=== PATIENT | male | born 1995 | race Caucasian/White ===

== ENCOUNTER 2017-07-26 15:16 | Emergency (ER) | payer OTHER ==
[~2017-07-26] VITALS: Ht 180.3 cm; Wt 64.0 kg
[~2017-07-26 15:16] MED LIST: CYCL10TA PO
[2017-07-26 15:17] VITALS: BP 134/79; PULSE 113; RESP 20; TEMP 100.1; O2SAT 100
--- NOTE | 2017-07-26 15:48 | RADRPT ---
EXAM DATE/TIME: 07/26/2017 15:37 [facility] COMPARISON: No previous studies available for comparison. INDICATIONS : Throat pain. MEDICAL HISTORY : None. SURGICAL HISTORY : None. ENCOUNTER: Initial ACUITY: 2 weeks PAIN SCORE: 3/10 LOCATION: Bilateral throat. FINDINGS: Two view examination of the soft tissues of the neck demonstrates the hypopharyngeal airway to have a grossly normal configuration. The epiglottis and aryepiglottic folds are unremarkable. The preverteb ral soft tissues are within normal limits. The trachea is midline. No radiopaque foreign bodies are seen. CONCLUSION: Unremarkable soft tissues. Oleg Rodriguez MD on July 26, 2017 at 15:44 Board Certified Radiologist. This report was verified electronically.
[2017-07-26 16:40] LABS: AUTOMATED NEUTROPHIL # 4.5 TH/MM3 (1.8-7.7); BASOPHIL % 0.4 % (0.0-2.0); EOSINOPHIL # 0.1 TH/MM3 (0-0.4); EOSINOPHIL % 1.2 % (0.0-4.0); HEMATOCRIT 34.5 % (39.0-51.0); HEMOGLOBIN 12.4 GM/DL (13.0-17.0); LYMPH % 50.1 % (9.0-44.0); LYMPHOCYTE # 5.5 TH/MM3 (1.0-4.8); MEAN CORPUSCULAR HEMOGLOBIN 30.8 PG (27.0-34.0); MEAN CORPUSCULAR HGB CONC 35.9 % (32.0-36.0); MEAN PLATELET VOLUME 6.1 FL (7.0-11.0); MONO % 7.2 % (0.0-8.0); MONOCYTE # 0.8 TH/MM3 (0-0.9); NEUT % 41.1 % (16.0-70.0); PLATELET COUNT 239 TH/MM3 (150-450); RED BLOOD COUNT 4.01 MIL/MM3 (4.50-5.90); RED CELL DISTRIBUTION WIDTH 13.6 % (11.6-17.2)
[2017-07-26 16:55] LABS: BICARBONATE 27.4 MEQ/L (21.0-32.0); CREATININE 0.87 MG/DL (0.60-1.30)
[2017-07-26] MEDS ORDERED: CLIN300C5 PO (17:29)
[2017-07-26 17:45] LABS: BANDS 4 % (0-6); LYMPHOCYTES 39 % (9-44); MONOCYTES 7 % (0-8); NEUTROPHIL # MANUAL DIFF 5.8 TH/MM3 (1.8-7.7); POLYS (SEG NEUTROPHILS) 49 % (16-70)
[2017-07-26 17:46] VITALS: BP 129/83; PULSE 84; RESP 16; O2SAT 100
--- NOTE | 2017-07-26 17:57 | PD ---
Physical Exam Time Seen by Provider: 17:55 Narrative I received report from POP Ricks and assumed patient care at this time. See her note for initial assessment and evaluation. Data Data Last Documented VS Vital Signs Date Time Temp Pulse Resp B/P (MAP) Pulse Ox O2 Delivery O2 Flow Rate FiO2 07/26/17 17:46 84 16 129/83 (98) 100 Room Air 07/26/17 15:17 100.1 Orders Orders Basic Metabolic Panel (Bmp) (07/26/17 15:25) Complete Blood Count With Diff (07/26/17 15:25) Group A Rapid Strep Screen (07/26/17 15:25) Soft Tissue Neck (07/26/17 15:25) Strep Culture (Group A) (07/26/17 16:25) Ct Soft Tiss Neck W Iv Cont (07/26/17 ) Iohexol 350 Inj (Omnipaque 350 Inj) (07/26/17 18:16) Ed Discharge Order (07/26/17 18:59) Labs Laboratory Tests Test 07/26/17 16:25 White Blood Count 11.0 TH/MM3 Red Blood Count 4.01 MIL/MM3 Hemoglobin 12.4 GM/DL Hematocrit 34.5 % Mean Corpuscular Volume 86.0 FL Mean Corpuscular Hemoglobin 30.8 PG Mean Corpuscular Hemoglobin Concent 35.9 % Red Cell Distribution Width 13.6 % Platelet Count 239 TH/MM3 Mean Platelet Volume 6.1 FL Neutrophils (%) (Auto) 41.1 % Lymphocytes (%) (Auto) 50.1 % Monocytes (%) (Auto) 7.2 % Eosinophils (%) (Auto) 1.2 % Basophils (%) (Auto) 0.4 % Neutrophils # (Auto) 4.5 TH/MM3 Lymphocytes # (Auto) 5.5 TH/MM3 Monocytes # (Auto) 0.8 TH/MM3 Eosinophils # (Auto) 0.1 TH/MM3 Basophils # (Auto) 0.0 TH/MM3 CBC Comment AUTO DIFF Differential Total Cells Counted 100 Neutrophils % (Manual) 49 % Band Neutrophils % 4 % Lymphocytes % 39 % Monocytes % 7 % Eosinophils % 1 % Neutrophils # (Manual) 5.8 TH/MM3 Differential Comment FINAL DIFF MANUAL Atypical Lymphocytes % Platelet Estimate NORMAL Platelet Morphology Comment NORMAL Red Cell Morphology Comment NORMAL Blood Urea Nitrogen 7 MG/DL Creatinine 0.87 MG/DL Random Glucose 89 MG/DL Calcium Level 9.0 MG/DL Sodium Level 138 MEQ/L Potassium Level 4.1 MEQ/L Chloride Level 103 MEQ/L Carbon Dioxide Level 27.4 MEQ/L Anion Gap 8 MEQ/L Estimat Glomerular Filtration Rate 111 ML/MIN MDM Supervised Visit with HERACLIO: Yes Narrative Course I received report from POP Ricks. See her note for initial assessment and evaluation. Patient was sent from [facility] urgent care to rule out peritonsillar abscess. CBC, BMP unremarkable. Rapid strep negative. CT soft tissue neck with IV contrast pending. 1857: CT soft tissue neck concludes: Neck CT 07/26/17 0000 Signed Impressions: Service Date/Time: Wednesday, July 26, 2017 18:17 - CONCLUSION: 1. Significant enlargement of the tonsillar pillars bilaterally (right larger than left) suggestive of acute tonsillitis. No definite underlying fluid collection is identified. 2. Extensive bilateral internal jugular and posterior cervical chain lymphadenopathy is noted. Lalit Best MD Patient provided a copy of the CT report. Patient discussed with and evaluated by Dr. House. Instructed patient to follow up with ENT. Instructed patient to follow up with primary care provider. Patient verbalizes understanding and agreement with treatment plan. Patient is medically cleared and stable for discharge. Discussed reasons to return to the emergency department. Patient agrees with treatment plan. The patients vital signs are stable and the patient is stable for outpatient follow-up and treatment. Patient discharged home, stable and in no acute distress. Diagnosis Primary Impression: Tonsillitis Referrals: Ear / Nose / Throat Specialist Primary Care Physician Patient Instructions: General Instructions, Tonsillitis (ED) Additional Instruction: Take Antibiotics as prescribed and complete full course of antibiotics Throw away and change your toothbrush 24 hours after starting antibiotics Get plenty of sleep/rest Rest your voice Drink plenty of fluids to prevent dehydration Use warm saltwater gargles to soothe throat pain Use an air humidifier/turn off ceiling fans Use throat lozenges as needed for sore throat Use ibuprofen or acetaminophen as needed to relieve pain and fever Follow-up with your primary care provider within 2-4 days Return immediately to the emergency department with worsening of symptoms Med/Other Pt SpecificInfo: No Change to Meds Disposition: DISCHARGE HOME Condition: Stable Marlena Cantrell Jul 26, 2017 17:57
[2017-07-26] MEDS ORDERED: IOHEXOL 350 MG/ML 10 ML VIAL (for RAD DIAG) IVCONTRAST ONE (18:16)
--- NOTE | 2017-07-26 18:23 | PD ---
HPI Chief Complaint: ENT Complaint Time Seen by Provider: 17:50 Travel History International Travel<30 days: No Contact w/Intl Traveler<30days: No Traveled to known affect area: No History of Present Illness HPI This is a 21-year-old male here with sore throat, difficulty swallowing, and fever for 6 days. Patient was originally seen at a [facility] walk in clinic 6 days ago diagnosed with tonsillitis and put on amoxicillin. He failed to improve and return to the same clinic 3 days ago. His antibiotic was switched to clindamycin at that time and he was referred to ENT for follow-up. He continued to have fever and increasing pain in his right tonsil making swallowing difficult they referred him here today to rule out peritonsillar abscess. Symptoms severity is moderate. PFSH Past Medical History Medical History: Denies Significant Hx Immunizations Current: Yes Social History Alcohol Use: No Tobacco Use: No Substance Use: No Allergies-Medications (Allergen,Severity, Reaction): Coded Allergies: No Known Allergies (Verified Adverse Reaction, Unknown, 07/26/17) Reported Meds & Prescriptions Reported Meds & Active Scripts Active Reported Clindamycin (Clindamycin HCl) 300 Mg Cap 300 Mg PO TID Review of Systems Except as stated in HPI: all other systems reviewed are Neg General / Constitutional: Positive: Fever, Chills Eyes: No: Visual changes HENT: Positive: Sore Throat Cardiovascular: No: Chest Pain or Discomfort Respiratory: No: Shortness of Breath Physical Exam Narrative GENERAL: Alert and well appearing 21-year-old male SKIN: Warm and dry. No rash HEAD: Normocephalic. EYES: No injection or drainage. Ears/nose/throat: Bilateral tonsillar hypertrophy right greater than left. Visible exudate on the right tonsil. Uvula is midline. Airway is patent. Normal phonation NECK: Supple. CARDIOVASCULAR: Regular rate and rhythm RESPIRATORY: Breath sounds equal bilaterally. No accessory muscle use. Data Data Last Documented VS Vital Signs Date Time Temp Pulse Resp B/P (MAP) Pulse Ox O2 Delivery O2 Flow Rate FiO2 07/26/17 17:46 84 16 129/83 (98) 100 Room Air 07/26/17 15:17 100.1 Orders Orders Basic Metabolic Panel (Bmp) (07/26/17 15:25) Complete Blood Count With Diff (07/26/17 15:25) Group A Rapid Strep Screen (07/26/17 15:25) Soft Tissue Neck (07/26/17 15:25) Strep Culture (Group A) (07/26/17 16:25) Ct Soft Tiss Neck W Iv Cont (07/26/17 ) Labs Laboratory Tests Test 07/26/17 16:25 White Blood Count 11.0 TH/MM3 Red Blood Count 4.01 MIL/MM3 Hemoglobin 12.4 GM/DL Hematocrit 34.5 % Mean Corpuscular Volume 86.0 FL Mean Corpuscular Hemoglobin 30.8 PG Mean Corpuscular Hemoglobin Concent 35.9 % Red Cell Distribution Width 13.6 % Platelet Count 239 TH/MM3 Mean Platelet Volume 6.1 FL Neutrophils (%) (Auto) 41.1 % Lymphocytes (%) (Auto) 50.1 % Monocytes (%) (Auto) 7.2 % Eosinophils (%) (Auto) 1.2 % Basophils (%) (Auto) 0.4 % Neutrophils # (Auto) 4.5 TH/MM3 Lymphocytes # (Auto) 5.5 TH/MM3 Monocytes # (Auto) 0.8 TH/MM3 Eosinophils # (Auto) 0.1 TH/MM3 Basophils # (Auto) 0.0 TH/MM3 CBC Comment AUTO DIFF Differential Total Cells Counted 100 Neutrophils % (Manual) 49 % Band Neutrophils % 4 % Lymphocytes % 39 % Monocytes % 7 % Eosinophils % 1 % Neutrophils # (Manual) 5.8 TH/MM3 Differential Comment FINAL DIFF MANUAL Atypical Lymphocytes % Platelet Estimate NORMAL Platelet Morphology Comment NORMAL Red Cell Morphology Comment NORMAL Blood Urea Nitrogen 7 MG/DL Creatinine 0.87 MG/DL Random Glucose 89 MG/DL Calcium Level 9.0 MG/DL Sodium Level 138 MEQ/L Potassium Level 4.1 MEQ/L Chloride Level 103 MEQ/L Carbon Dioxide Level 27.4 MEQ/L Anion Gap 8 MEQ/L Estimat Glomerular Filtration Rate 111 ML/MIN [facility] Medical Decision Making Medical Screen Exam Complete: Yes Emergency Medical Condition: Yes Differential Diagnosis Peritonsillar abscess, strep pharyngitis, viral pharyngitis, mononucleosis Narrative Course This is a 21-year-old male here with exudative tonsillitis failing to improve with clindamycin. He is nontoxic appearing. He is tolerating oral secretions. Normal phonation. CT neck Soft tissue is ordered and pending. Care of patient is handed off to Jovani Galeas to follow-up and so pending imaging. Ayanna Brewster Jul 26, 2017 18:23
--- NOTE | 2017-07-26 18:52 | RADRPT ---
EXAM DATE/TIME: 07/26/2017 18:17 [facility] COMPARISON: No previous studies available for comparison. INDICATIONS : Pain in throat, peritonsillar abscess. IV CONTRAST: 75 cc Omnipaque 350 (iohexol) IV RADIATION DOSE: 15.89 CTDIvol (mGy) MEDICAL HISTORY : None SURGICAL HISTORY : None. ENCOUNTER: Initial ACUITY: 1 day PAIN SCALE: 8/10 LOCATION: Bilateral neck region. TECHNIQUE: Volumetric scanning of the neck was performed. Using automated exposure control and adjustment of th e mA and/or kV according to patient size, radiation dose was kept as low as reasonably achievable to obtain optimal diagnostic quality images. DICOM format image data is available electronically for r eview and comparison. FINDINGS: NASOPHARYNX: The nasopharyngeal airway has a normal configuration. No mucosal thickening or mass is seen. OROPHARYNX: The intrinsic muscles of the tongue are symmetric. There is significant enlargement of the tonsillar pillars bilaterally (right larger than left) suggestive of acute tonsillitis. No definite underlying fluid collection is identified. The prevertebral soft tissues are not thickened. LARYNX: The supraglottic, glottic, and infraglottic structures are intact. PARAPHARYNGEAL: The parapharyngeal space is intact. SALIVARY GLANDS: The parotid and submandibular glands are intact. LYMPH NODES: Extensive bilateral internal jugular and posterior cervical chain lymphadenopathy is noted. THYROID: Homogeneous enhancement without evidence of nodule. BONES: Unremarkable. CONCLUSION: 1. Significant enlargement of the tonsillar pillars bilaterally (right larger than left) suggestive o f acute tonsillitis. No definite underlying fluid collection is identified. 2. Extensive bilateral internal jugular and posterior cervical chain lymphadenopathy is noted. Lalit Best MD on July 26, 2017 at 18:46 Board Certified Radiologist. This report was verified electronically.
--- NOTE | 2017-07-26 18:59 | PD ---
Physical Exam Date Seen by Provider: Jul 26, 2017 Narrative Patient presents for the evaluation of sore throat. Data Data Last Documented VS Vital Signs Date Time Temp Pulse Resp B/P (MAP) Pulse Ox O2 Delivery O2 Flow Rate FiO2 07/26/17 17:46 84 16 129/83 (98) 100 Room Air 07/26/17 15:17 100.1 Orders Orders Basic Metabolic Panel (Bmp) (07/26/17 15:25) Complete Blood Count With Diff (07/26/17 15:25) Group A Rapid Strep Screen (07/26/17 15:25) Soft Tissue Neck (07/26/17 15:25) Strep Culture (Group A) (07/26/17 16:25) Ct Soft Tiss Neck W Iv Cont (07/26/17 ) Iohexol 350 Inj (Omnipaque 350 Inj) (07/26/17 18:16) Labs Laboratory Tests Test 07/26/17 16:25 White Blood Count 11.0 TH/MM3 Red Blood Count 4.01 MIL/MM3 Hemoglobin 12.4 GM/DL Hematocrit 34.5 % Mean Corpuscular Volume 86.0 FL Mean Corpuscular Hemoglobin 30.8 PG Mean Corpuscular Hemoglobin Concent 35.9 % Red Cell Distribution Width 13.6 % Platelet Count 239 TH/MM3 Mean Platelet Volume 6.1 FL Neutrophils (%) (Auto) 41.1 % Lymphocytes (%) (Auto) 50.1 % Monocytes (%) (Auto) 7.2 % Eosinophils (%) (Auto) 1.2 % Basophils (%) (Auto) 0.4 % Neutrophils # (Auto) 4.5 TH/MM3 Lymphocytes # (Auto) 5.5 TH/MM3 Monocytes # (Auto) 0.8 TH/MM3 Eosinophils # (Auto) 0.1 TH/MM3 Basophils # (Auto) 0.0 TH/MM3 CBC Comment AUTO DIFF Differential Total Cells Counted 100 Neutrophils % (Manual) 49 % Band Neutrophils % 4 % Lymphocytes % 39 % Monocytes % 7 % Eosinophils % 1 % Neutrophils # (Manual) 5.8 TH/MM3 Differential Comment FINAL DIFF MANUAL Atypical Lymphocytes % Platelet Estimate NORMAL Platelet Morphology Comment NORMAL Red Cell Morphology Comment NORMAL Blood Urea Nitrogen 7 MG/DL Creatinine 0.87 MG/DL Random Glucose 89 MG/DL Calcium Level 9.0 MG/DL Sodium Level 138 MEQ/L Potassium Level 4.1 MEQ/L Chloride Level 103 MEQ/L Carbon Dioxide Level 27.4 MEQ/L Anion Gap 8 MEQ/L Estimat Glomerular Filtration Rate 111 ML/MIN MDM Supervised Visit with HERACLIO: Yes Narrative Course I, Dr. House, have reviewed the advance practice practitioner's documentation and am in agreement, met with the patient face to face, made the diagnosis, and the medical decision making was done by me. *My assessment and Findings: Patient is having no trouble speaking, handling secretions or breathing. He has bilateral tonsillar enlargement with an exudate noted in his right tonsil. Please see Marlena Cantrell NP's note for results of laboratory and radiographic evaluation, ED course, final diagnosis and disposition Mai House MD Jul 26, 2017 18:59
== END 2017-07-26 19:22 | disposition home or self-care (01) ==
LOC: NEPD 15:16
DX: J03.90 Acute tonsillitis, unspecified (principal)
CPT/HCPCS: 70360; 70491; 80048; 85007; 85027; 86403; 87081; 87880; 99285; Q9967

== ENCOUNTER 2017-11-13 21:55 | Emergency (ER) | payer OTHER ==
[~2017-11-13 21:55] MED LIST changes: +CLIN300C5 PO; -CYCL10TA PO
[2017-11-13] MEDS ORDERED: CLIN150C14 PO (22:54)
[2017-11-13] MEDS ORDERED: BACT800T5 PO (22:54)
--- NOTE | 2017-11-13 22:55 | PD ---
HPI Chief Complaint: Skin Problem Time Seen by Provider: 22:50 Travel History International Travel<30 days: No Contact w/Intl Traveler<30days: No Traveled to known affect area: No History of Present Illness HPI 22-year-old male with complaint of redness swelling tenderness to the right upper arm next to his recent tattoo site. Patient also noted to have 2 small intact pustules involving the tattoo. Patient has had no ascending erythema or axillary lymphadenopathy. Patient denies fever chills. Patient is not diabetic. Tetanus status is current as of 2013. Patient states he has noted this area of inflammation since has progressively gotten somewhat larger and firm and decided to discuss it with his coworkers who suggested that he come to the emergency room for evaluation. Patient is right-handed. Patient denies any distal numbness tingling or weakness or complaints. Patient rates localized discomfort as 8/10 in intensity. Patient is taken no medications for symptom relief. PFSH Past Medical History Immunizations Current: Yes Social History Alcohol Use: No Tobacco Use: No Substance Use: No Allergies-Medications (Allergen,Severity, Reaction): Coded Allergies: No Known Allergies (Verified Adverse Reaction, Unknown, 07/26/17) Reported Meds & Prescriptions Reported Meds & Active Scripts Active Clindamycin (Clindamycin HCl) 150 Mg Cap 300 Mg PO Q6H 5 Days Bactrim DS (Sulfamethoxazole-Trimethoprim) 800-160 Mg Tab 1 Tab PO BID Review of Systems Except as stated in HPI: all other systems reviewed are Neg Physical Exam Narrative GENERAL: Well-developed well-nourished male no acute distress no respiratory distress. SKIN: Warm and dry. Attention right upper extremity upper arm shows area of erythema 6 cm with 1 cm central induration and central scab in place without fluctuance tender to palpation with increased warmth neighboring newly placed tattoo with a few neighboring intact pustules. No ascending erythema. Distally neurovascular tendon intact HEAD: Normocephalic. EYES: No scleral icterus. No injection or drainage. NECK: Supple, trachea midline. No JVD or lymphadenopathy. Data Data Last Documented VS Vital Signs Date Time Temp Pulse Resp B/P (MAP) Pulse Ox O2 Delivery O2 Flow Rate FiO2 11/13/17 23:06 98.1 84 18 128/84 (99) 98 Room Air Orders Orders Sulfamet-Trimeth Ds 800-160 Mg (Bactrim (5/21/18 23:00) Clindamycin (Cleocin) (11/13/17 23:00) Wound Culture And Gram Stain (11/13/17 22:51) Ibuprofen (Motrin) (11/13/17 23:00) Ed Discharge Order (11/13/17 23:00) [facility] Medical Decision Making Medical Screen Exam Complete: Yes Emergency Medical Condition: Yes Medical Record Reviewed: Yes Differential Diagnosis Cellulitis abscess wound infection impetigo Narrative Course Patient with area of induration consistent with cellulitis possible very early abscess without fluctuance and not ready for incision and drainage was neighboring intact pustules at recently placed tattoo. Wound culture obtained after gently unroofing single pustule. Patient's tetanus status is current as of 2013. Patient given first dose of oral antibiotic in the emergency department. Diagnosis Primary Impression: Cellulitis and abscess of upper arm and forearm Referrals: Primary Care Physician 2 days Patient Instructions: General Instructions Additional Instructions: Keep wound site clean and dry and and covered when out in the community Complete course of antibiotic as prescribed Take acetaminophen or ibuprofen as needed for discomfort or fever 100.4F or greater follow wound instructions Wound check in 2 days Return to the emergency department for any concerns or change in condition Med/Other Pt SpecificInfo: Prescription(s) given Scripts Clindamycin (Clindamycin) 150 Mg Cap 300 MG PO Q6H for Infection for 5 Days, #40 CAP 0 Refills Prov: Maile Urbina MD 11/13/17 Sulfamethoxazole-Trimethoprim (Bactrim DS) 800-160 Mg Tab 1 TAB PO BID for Infection, #14 TAB 0 Refills Prov: Maile Urbina MD 11/13/17 Disposition: 01 DISCHARGE HOME Condition: Stable Maile Urbina MD November 13, 2017 22:55
[2017-11-13] MEDS ORDERED: SULFAMETHOXAZOLE-TRIMETHOPRIM DS 800-160 MG TAB PO ONE (23:00)
[2017-11-13] MEDS ORDERED: CLINDAMYCIN 150 MG CAP PO ONE (23:00)
[2017-11-13] MEDS ORDERED: IBUPROFEN 800 MG TAB PO ONE (23:00)
[2017-11-13 23:06] VITALS: BP 128/84; PULSE 84; RESP 18; TEMP 98.1; O2SAT 98
== END 2017-11-13 23:28 | disposition home or self-care (01) ==
LOC: NEPC 21:55
DX: L03.113 Cellulitis of right upper limb (principal)
CPT/HCPCS: 86403; 87070; 87186; 87205; 99283

== ENCOUNTER 2017-12-07 23:44 | Emergency (ER) | payer OTHER ==
[~2017-12-07] VITALS: Ht 177.8 cm; Wt 64.0 kg
[~2017-12-07 23:44] MED LIST changes: +BACT800T5 PO; +CLIN150C14 PO; -CLIN300C5 PO
[2017-12-07 23:51] VITALS: BP 146/83; PULSE 71; RESP 20; TEMP 98.5; O2SAT 99
[2017-12-08] MEDS ORDERED: CLINDAMYCIN 600 MG/NS PREMIX 50 ML IV ONE (00:30)
[2017-12-08] MEDS ORDERED: CLIN300C5 PO (01:24)
[2017-12-08] MEDS ORDERED: BACT800T5 PO (01:24)
--- NOTE | 2017-12-08 01:26 | PD ---
HPI . Forearm abscess Chief Complaint: Skin Problem Time Seen by Provider: 00:07 Travel History International Travel<30 days: No Contact w/Intl Traveler<30days: No Traveled to known affect area: No History of Present Illness HPI Patient has a abscess elevated on the forearm right-sided under a recent tattoo , getting worse over last few days , pressure like pain and swelling , he prior had a abscess on his upper arm in the same tattoo area, Culture sent that was MRSA positive. After few days of PO antibiotics that area neeed to be I&D .. he was on Bactrim and Clinda which made that clear up after the I and D .. now pt is coming back swelling warmth to forearm appearing on the forearm right-sided. Currently he is not on antibiotics at this time.. He has not seenanother MD for this new abscess cellulitis area [facility] Past Medical History Medical History: Denies Significant Hx Diminished Hearing: No Immunizations Current: Yes Tetanus Vaccination: > 5 Years Influenza Vaccination: No Past Surgical History Surgical History: No Previous Surgery Social History Alcohol Use: No Tobacco Use: No Substance Use: No Allergies-Medications (Allergen,Severity, Reaction): Coded Allergies: No Known Allergies (Verified Adverse Reaction, Unknown, 12/07/17) Reported Meds & Prescriptions Reported Meds & Active Scripts Active Bactrim DS (Sulfamethoxazole-Trimethoprim) 800-160 Mg Tab 1 Tab PO BID Clindamycin (Clindamycin HCl) 300 Mg Cap 300 Mg PO TID Review of Systems Except as stated in HPI: all other systems reviewed are Neg Physical Exam Narrative GENERAL: Nontoxic-appearing afebrile SKIN: Warm and dry. HEAD: Atraumatic. Normocephalic. EYES: Pupils equal and round. No scleral icterus. No injection or drainage. ENT: No nasal bleeding or discharge. Mucous membranes pink and moist. NECK: Trachea midline. No JVD. CARDIOVASCULAR: Regular rate and rhythm. RESPIRATORY: No accessory muscle use. Clear to auscultation. Breath sounds equal bilaterally. GASTROINTESTINAL: Abdomen soft, non-tender, nondistended. Hepatic and splenic margins not palpable. MUSCULOSKELETAL: Extremities patient has a right forearm 3 cm raised area with a papule in the center on his extensor surface ulnar aspect of his forearm right -sided. No deformities. NEUROLOGICAL: Awake and alert. No obvious cranial nerve deficits. Motor grossly within normal limits. Five out of 5 muscle strength in the arms and legs. Normal speech. PSYCHIATRIC: Appropriate mood and affect; insight and judgment normal. Data Data Last Documented VS Vital Signs Date Time Temp Pulse Resp B/P (MAP) Pulse Ox O2 Delivery O2 Flow Rate FiO2 12/07/17 23:51 98.5 71 20 146/83 (104) 99 Orders Orders Clindamycin 600 Mg/Ns Premix (Cleocin 60 (12/08/17 00:30) Sulfamet-Trimeth Ds 800-160 Mg (Bactrim (12/08/17 01:30) Ed Discharge Order (12/08/17 01:58) MDM Medical Decision Making Medical Screen Exam Complete: Yes Emergency Medical Condition: Yes Medical Record Reviewed: Yes Differential Diagnosis cellulitis vs early abscess vs MRSA Narrative Course PA does needle aspiration with mild pus return .. IV clindamycin given in ER and Bactrim PO and then RX for both Clinda and Bactrim for 10 days Diagnosis Primary Impression: Abscess Scripts Sulfamethoxazole-Trimethoprim (Bactrim DS) 800-160 Mg Tab 1 TAB PO BID for Infection, #20 TAB 0 Refills Prov: Bon Ling MD 12/08/17 Clindamycin (Clindamycin) 300 Mg Cap 300 MG PO TID for Infection, #30 CAP 0 Refills Prov: Bon Ling MD 12/08/17 Disposition: 01 DISCHARGE HOME Condition: Good Bon Ling MD Dec 08, 2017 01:26
[2017-12-08] MEDS ORDERED: SULFAMETHOXAZOLE-TRIMETHOPRIM DS 800-160 MG TAB PO ONE (01:30)
--- NOTE | 2017-12-08 01:32 | PD ---
Physical Exam Date Seen by Provider: Dec 08, 2017 Time Seen by Provider: 01:30 Data Data Last Documented VS Vital Signs Date Time Temp Pulse Resp B/P (MAP) Pulse Ox O2 Delivery O2 Flow Rate FiO2 12/07/17 23:51 98.5 71 20 146/83 (104) 99 Orders Orders Clindamycin 600 Mg/Ns Premix (Cleocin 60 (12/08/17 00:30) Sulfamet-Trimeth Ds 800-160 Mg (Bactrim (12/08/17 01:30) MDM Medical Record Reviewed: Yes Supervised Visit with HERACLIO: Yes Differential Diagnosis MDM: High Differential diagnoses: Abscess, folliculitis, cellulitis, lymphangitis, abrasion, contact dermatitis Narrative Course A needle aspiration has been performed to the right form. Procedures Procedure Narrative Needle aspiration right forearm abscess: The skin is prepped with ChloraPrep. 1 % lidocaine local 1 cc. An 18-gauge needle is inserted into the abscess cavity. A scant amount of pus is expressed. Patient tolerates procedure well. No complications. Diagnosis Primary Impression: Abscess Patient Instructions: General Instructions Additional Instruction: Rest. Elevation. keep clean and dry. Warm compresses. Daily wound care with soap, water and Neosporin. Three Advil every 6 hours. Medications as directed. Follow-up with a primary care doctor in one week. Return to the ER for any problems. Med/Other Pt SpecificInfo: Prescription(s) given Scripts Sulfamethoxazole-Trimethoprim (Bactrim DS) 800-160 Mg Tab 1 TAB PO BID for Infection, #20 TAB 0 Refills Prov: Bon Ling MD 12/08/17 Clindamycin (Clindamycin) 300 Mg Cap 300 MG PO TID for Infection, #30 CAP 0 Refills Prov: Bon Ling MD 12/08/17 Disposition: 01 DISCHARGE HOME Condition: Stable Ryan Baer Dec 08, 2017 01:31
== END 2017-12-08 02:20 | disposition home or self-care (01) ==
LOC: NEPE 23:44
DX: L02.413 Cutaneous abscess of right upper limb (principal); Z86.14 Personal history of Methicillin resistant Staphylococcus aureus infection
CPT/HCPCS: 10160; 96374